=== PATIENT | female | born 1990 | race Caucasian/White ===

== ENCOUNTER 2022-06-06 09:00 | Day surgery (SDC) | payer BC ==
[2022-06-06] VITALS (10 sets, daily range): BP systolic 115–132; BP diastolic 77–92
[~2022-06-06] VITALS: Ht 165 cm; Wt 93.1 kg
[2022-06-06] MEDS ORDERED: proPOfol 200 MG/20 ML (DIPRIVAN) VIAL IV ONE (09:14)
[2022-06-06] MEDS ORDERED: fentaNYL INJ 100 MCG/2 ML AMP ONE (09:14)
[2022-06-06] MEDS ORDERED: ONDANSETRON 4 MG/2 ML (SDV) Z0FRAN ONE (09:14)
[2022-06-06] MEDS ORDERED: LIDOCAINE PF 2% 5 ML (XYLOCAINE) VIAL ONE (09:14)
[2022-06-06] MEDS ORDERED: MIDAZOLAM 2 MG/2 ML (VERSED) VIAL ONE (09:15)
[2022-06-06] MEDS ORDERED: LACTATED RINGERS 1,000 ML IV PRN (09:15)
[2022-06-06] MEDS ORDERED: ceFAZolin INJECTION 1,000 MG in NS (IVPB) 50 ML IV ONE (09:15)
[2022-06-06 09:37] LABS: BASOPHILS % (AUTO) 0 % (0-10); EOSINOPHILS # (AUTO) 0.1 10^3/uL (0.0-0.3); EOSINOPHILS % (AUTO) 2 % (0-10); HEMATOCRIT 38 % (35-52); HEMOGLOBIN 13.2 g/dL (11.5-16.0); LYMPHOCYTES # (AUTO) 2.1 10^3/uL (1.0-4.0); LYMPHOCYTES % (AUTO) 30 % (12-44); MEAN CORPUSCULAR HEMOGLOBIN 30 pg (25-34); MEAN CORPUSCULAR HGB CONC 34 g/dL (32-36); MEAN CORPUSCULAR VOLUME 87 fL (80-99); MEAN PLATELET VOLUME 10.6 fL (9.0-12.2); MONOCYTES # (AUTO) 0.4 10^3/uL (0.0-1.0); MONOCYTES % (AUTO) 6 % (0-12); NEUTROPHILS # (AUTO) 4.5 10^3/uL (1.8-7.8); NEUTROPHILS % (AUTO) 62 % (42-75); PLATELET COUNT 237 10^3/uL (130-400); WHITE BLOOD COUNT 7.2 10^3/uL (4.3-11.0)
[2022-06-06] MEDS ORDERED: MEPERIDINE (DEMEROL) INJ 100 MG/ML IM ONE (10:30)
[2022-06-06] MEDS ORDERED: D5 LR IV SOLUTION 1,000 ML IV SCH (10:30)
[2022-06-06] MEDS ORDERED: ONDANSETRON 4 MG/2 ML (SDV) Z0FRAN IVP PRN ×2 (10:30→11:00)
[2022-06-06] MEDS ORDERED: KETOROLAC 30 MG/ML VIAL IVP ONE (10:30)
[2022-06-06] MEDS ORDERED: PROMETHAZINE INJ 25 MG/ML (PHENERGAN) AMP IM ONE (10:30)
--- NOTE | 2022-06-06 10:30 | Progress Note-Post Operative ---
Post-Operative Progess Note Surgeon (s)/Cafe Associate (s) Surgeon MARTIN FERNANDEZ MD Cafe Associate: none Pre-Operative Diagnosis Missed miscarriage Post-Operative Diagnosis Same with pathology pending Procedure & Operative Findings Date of Procedure 06/06/22 Procedure Performed/Findings D&C for first trimester missed miscarriage Anesthesia Type General Estimated Blood Loss Estimated blood loss (mL): 200cc Specimens/Packing Specimens Removed Uterine contents/products of conception MARTIN FERNANDEZ MD Jun 06, 2022 10:30
--- NOTE | 2022-06-06 10:30 | Progress Note-Pre Operative ---
Pre-Operative Progress Note Date of Available H&P: Jun 06, 2022 Date H&P Reviewed: Jun 06, 2022 Time H&P Reviewed: 10:29 History & Physical: H&P Reviewed, No changes noted Pre-Operative Diagnosis: Missed miscarriage MARTIN FERNANDEZ MD Jun 06, 2022 10:30
--- NOTE | 2022-06-06 10:32 | Discharge Inst-Surgical ---
Discharge Inst-Surgical Depart Medication/Instructions New, Converted or Re-Newed RX: Other Consults/Follow Up Patient Instructions: As directed Orders & Referrals Follow Up Appt: Call to make follow up appt. for patient in 2 weeks. Activity: Rest for 24 hours, than as tolerated. May use [id number] Motrin/ibuprofen/Advil/Aleve asNeeded Diet: As tolerated- shower or tub bathe as desired. No driving for 24 hours, no alcoholic beverages for 24 hours, and nothing per vagina (no tampons, douching, or intercoarse) for 2 weeks. Patient to return to the clinic as soon as possible for: Temperature greater than 101F, Severe Pain, Foul discharge from incision or vagina, Excessive Bleeding (more than a period). Activity Activity as Tolerated: No Diet Discharge Diet: No Restrictions MARTIN FERNANDEZ MD Jun 06, 2022 10:32
[2022-06-06] MEDS ORDERED: SEVOFLURANE (ULTANE) 15 ML INHAL SOLN ONE (10:53)
[2022-06-06] MEDS ORDERED: MEPERIDINE (DEMEROL) INJ 50 MG/ML IVP ONE (11:00)
[2022-06-06] MEDS ORDERED: HYDROmorphone 2 MG/ML VIAL (DILAUDID) IV ONE (11:00)
[2022-06-06] MEDS ORDERED: PROMETHAZINE INJ 25 MG/ML (PHENERGAN) AMP IVP ONE (11:00)
[2022-06-06] MEDS ORDERED: morphine INJ 10 MG/ML 1ML (SYR OR VIAL) IVP ONE (11:00)
[2022-06-06] MEDS ORDERED: KETOROLAC 30 MG/ML VIAL ONE (11:18)
--- NOTE | 2022-06-07 08:46 | OPERATIVE REPORT ---
DATE OF SERVICE: 06/06/2022 PREOPERATIVE DIAGNOSIS: Missed miscarriage. POSTOPERATIVE DIAGNOSIS: Missed miscarriage. PROCEDURE: D and C for missed miscarriage. DESCRIPTION OF PROCEDURE: With the patient in the supine position, under satisfactory general anesthesia, she was repositioned in the dorsal lithotomy position in the Anselmo stirrups and prepped and draped in the usual fashion for vaginal surgery. Weighted speculum was placed in the posterior points of the vagina, cervix exposed and grasped anteriorly with single tooth tenaculum. The uterus was sounded to 14 cm with a uterine sound. The cervix was then serially dilated with Martin dilators to accommodate a #10 curved suction, which was introduced and the uterine cavity curettaged with removal of a large amount of trophoblastic and residual appearing tissue. There was ample blood clot, amniotic fluid and debris as well. The endometrial cavity was now sharply curettaged in all 4 quadrants to the good uterine cry. The curved suction curette was reintroduced and all blood clot and debris were evacuated from the uterine cavity. The curette was removed as was the tenaculum. There was no bleeding from the puncture sites. There was minimal bleeding from the cervical os. Sponge and needle counts were correct and the procedure complete. The patient was uneventfully awakened from her general anesthesia and transferred to recovery room in stable condition with plans for discharge home. Preoperative blood loss for the procedure was around 200 mL. Job ID: [id number] DocumentID: [id number] Dictated Date: 06/06/2022 20:19:56 Hedge Fund Manager Date: 06/07/2022 08:45:00 Dictated By: MARTIN FERNANDEZ MD
== END 2022-06-06 12:30 | disposition home or self-care (01) ==
LOC: SDC 09:00
PROVIDERS: ATTEND Obstetrics & Gynecology
DX: O02.1 Missed abortion (principal); E66.9 Obesity, unspecified; Z68.34 Body mass index [BMI] 34.0-34.9, adult
CPT/HCPCS: 36415; 85025; 87081

== ENCOUNTER → 2023-03-23 | Outpatient (CLI) | payer BC, MEDICAID ==
--- NOTE | 2023-03-23 12:38 | Diagnostic Imaging Report ---
INDICATION: survey. TECHNIQUE: Multiple real-time grayscale images were obtained over the gravid uterus. COMPARISON: None. FINDINGS: There is a single live fetus in a transverse presentation with head to the maternal right. heart rate was recorded at 132 BPM. Placenta is posterior and low lying. Amniotic fluid index is 10.3 cm. kidneys, bladder and stomach are unremarkable. brain is unremarkable. There is a four-chamber heart. There is a three-vessel cord with normal insertion. spine is unremarkable. Maternal adnexa was not evaluated. Biometrical measurements are as follows: Biparietal 4.79 cm, age 20 weeks 4 days. Head circumference 18.44 cm, age 20 weeks 6 days. Abdominal circumference 15.99 cm, age 21 weeks 1 days. Femur length 3.44 cm, age 20 weeks 6 days. Sonographic estimate age: 20 weeks 6 days. Sonographic estimated date of delivery: 08/04/2023. Estimated Weight: 388 gm (+/- 57 gm). LMP percentile: 87%. heart rate: 132 beats per minute. number: 1 of 1. IMPRESSION: Single live IUP of 20 weeks 6 days gestational age. Estimated date of confinement sonographically is 08/04/2023. Note is made of a low-lying posterior placenta. Dictated by: Dictated on workstation # [id number]
== END ==
LOC: RAD 09:45
PROVIDERS: ATTEND Obstetrics & Gynecology
DX: Z36.89 Encounter for other specified antenatal screening (principal); Z3A.20 20 weeks gestation of pregnancy
CPT/HCPCS: 76805

== ENCOUNTER → 2023-05-18 | Outpatient (CLI) | payer BC, MEDICAID ==
--- NOTE | 2023-05-18 18:18 | Diagnostic Imaging Report ---
INDICATION: Low-lying placenta, follow-up. TECHNIQUE: Multiple real-time grayscale images were obtained over the gravid uterus. COMPARISON: 03/23/2023. FINDINGS: There is a single live fetus in a cephalic presentation. heart rate was recorded at 120 BPM. Placenta is posterior and continues to be low lying, 1.8 cm from the internal cervical os. Cervical length is 4.2 cm. Amniotic fluid index is 16.7 cm. IMPRESSION: There continues to be posterior low-lying placenta, 1.8 cm from the internal cervical os. Dictated by: Dictated on workstation # [id number]
== END ==
LOC: RAD 09:42
PROVIDERS: ATTEND Obstetrics & Gynecology
DX: Z36.89 Encounter for other specified antenatal screening (principal)
CPT/HCPCS: 76816

== ENCOUNTER → 2023-06-15 | Outpatient (CLI) | payer BC ==
--- NOTE | 2023-06-15 19:30 | Diagnostic Imaging Report ---
INDICATION: Gestational diabetes. TECHNIQUE: Multiple real-time grayscale images were obtained over the gravid uterus. COMPARISON: 05/18/2023 FINDINGS: Odell gestation is in cephalic position. The nondilated cervix measures 4.1 cm. The closed os is 4 cm from the caudal tip of the posterior placenta. There is no abruption or previa. Regular heart rate at 129 bpm. Estimated weight of 2081 g is at the 65th LMP percentile. FINDINGS: Biometrical measurements are as follows: Biparietal 8.41 cm, age 32 weeks 5 days. Head circumference 28.69 cm, age 31 weeks 4 days. Abdominal circumference 29.76 cm, age 33 weeks 6 days. Femur length 6.18 cm, age 32 weeks 1 days. Sonographic estimate age: 32 weeks 4 days. Sonographic estimated date of delivery: 08/06/23. Estimated Weight: 2081 gm (+/- 304 gm). LMP percentile: 65%. heart rate: 129 beats per minute. number: 1 of 1. IMPRESSION: 1. Odell gestation 32 weeks 4 days, estimated weight at the 65th percentile per LMP. 2. Caudal tip of the placenta today 4 cm from the closed cervical os with normal nondilated cervical length. No abruption or previa. Dictated by: Dictated on workstation # [id number]
== END ==
LOC: RAD 10:12
PROVIDERS: ATTEND Obstetrics & Gynecology
DX: O24.419 Gestational diabetes mellitus in pregnancy, unspecified control (principal); Z3A.32 32 weeks gestation of pregnancy
CPT/HCPCS: 76816